=== PATIENT | male | born 1985 | race Caucasian/White ===

== ENCOUNTER 2025-09-01 18:40 | Emergency (ER) | payer OTHER ==
[~2025-09-01] VITALS: Ht 175.3 cm; Wt 109.1 kg
[2025-09-01] MEDS ORDERED: LISI-663 PO (19:16)
[2025-09-01] MEDS ORDERED: AMLO-258 PO ×2 (19:16→20:48)
[2025-09-01] MEDS ORDERED: LISI-894 PO (20:48)
[2025-09-01 21:11] VITALS: TEMP 97.7
[2025-09-01 21:46] VITALS: BP 146/92; PULSE 64; RESP 15; O2SAT 99
== END 2025-09-01 21:50 | disposition home or self-care (01) ==
LOC: EMS 18:40
DX: I10 Essential (primary) hypertension (principal); R51.9 Headache, unspecified; Z76.0 Encounter for issue of repeat prescription; Z79.899 Other long term (current) drug therapy
CPT/HCPCS: 99283